=== PATIENT | female | born 1985 | race Two or more races ===

== ENCOUNTER 2024-08-01 15:48 | Emergency (ER) | payer MEDICAID, SELFPAY ==
[2024-08-01 15:49] VITALS: BMI 38.7
[2024-08-01 16:17] VITALS: BP 143/88; PULSE 70; RESP 18; TEMP 37; O2SAT 97
--- NOTE | 2024-08-01 16:17 | XR_ITS ---
Examination: PA lateral chest 2 views Technique: Upright PA lateral chest 2 views Exam date and time: August 01, 2024 1626 hrs. Indications: Chest pain today Findings: Minimal rounding left ventricle No pneumonia or pulmonary edema Moderate thoracic spondylosis Impression: No active disease
--- NOTE | 2024-08-01 16:17 | EKG_ITS ---
[facility] Test Date: 2024-08-01 Pat Name: JOSE DAVID VILLAR Department: Room: - Gender: Female Ldr Nurse: : 1985 Requested By: David Escobar ([employer] T[employer] LATHE OPERATOR) Order Number: [id number] Reading MD: David Escobar ([employer] TA[employer] T[employer]RET LATHE OPERATOR) Measurements Intervals [place] Rate: 61 P: 33 [place]: 164 QRS: -16 QRSD: 87 T: 31 QT: 389 QTc: 393 Interpretive Statements SINUS RHYTHM LOW QRS VOLTAGE IN PRECORDIAL LEADS [QRS DEFLECTION < 1.0 mV IN CHEST LEADS] POSSIBLE ANTERIOR MYOCARDIAL INFARCTION , OF INDETERMINATE AGE [30 ms Q WAVE IN V3/V4, OR R < 0.2 mV IN V4] No previous ECG available for comparison /store/S0/[id number].pdf
--- NOTE | 2024-08-01 16:17 | XR_ITS ---
Examination: CT brain head without contrast. 2-D sagittal coronal reconstructions Date and time of exam:August 01, 2024 1641 hrs. Indications: Onset severe head pain beginning 2 days ago CTDI: vol (mGy):50.9 DLP: (mGycm):1000 Technique: Multiple CT axial sections of the brain have been obtained, 5 mm slice thickness. Contrast has not been administered. 2-D sagittal, coronal reconstructions have been obtained Low dose protocols were performed. One or more of the following dose reduction techniques were used; automated exposure control, adjustment of the mA and/or KV according to patient size, use of iterative reconstruction technique. Findings: No significant ventricular enlargement. Intra-axial or extra-axial hemorrhage density is not seen. No mass effect or midline shift Basal cisterns are not remarkable. Fourth ventricle is midline. Cranial vault intact. Impression: Negative for acute hemorrhage, mass effect or midline shift Advise clinical correlation and follow-up accordingly If new onset severe head pain persists, consider brain MRI follow-up
--- NOTE | 2024-08-01 16:17 | PD.EDRME ---
Rapid Medical Screening Exam RME Arrival date/time: 08/01/24 15:48 39-year-old female presents to the emergency department complaints of dizziness, weakness generalized bodyaches Chief Complaint: Flu Like Symptoms
[2024-08-01 16:57] LABS: Basophils % (Auto) 1 % (0-2.5); Eosinophils # (Auto) 0.1 Thou/mm3 (0.0-0.5); Eosinophils % (Auto) 2 % (0-10); Hematocrit 41.3 % (36.0-46.0); Hemoglobin 14.1 g/dL (12.0-16.0); Immature Granulocytes % (Auto) 0 % (0-0); Immature Granulocytes Auto 0.01 Thou/mm3 (0.00-0.00); Lymphocytes % (Auto) 28 % (10-50); Mean Corpuscular HGB Conc 34.1 g/dl (31.0-37.0); Mean Corpuscular Hemoglobin 31.1 pg (25.0-35.0); Mean Corpuscular Volume 91 fL (80-100); Monocytes # (Auto) 0.7 Thou/mm3 (0.0-0.8); Monocytes % (Auto) 10 % (0-12); Neutrophils # (Auto) 4.4 Thou/mm3 (1.8-7.7); Neutrophils % (Auto) 60 % (37-80); Nucleated Red Blood Cell % 0 /100 WBC (0); Platelet Count 222 Thou/mm3 (140-440); RDW Standard Deviation 43.7 fL (36.4-46.3); Red Blood Count 4.53 Miln/mm3 (4.00-5.20); White Blood Count 7.3 Thou/mm3 (3.6-11.0)
[2024-08-01 17:17] LABS: Collection Type, Urine Clean Catch
[2024-08-01 17:25] LABS: Bilirubin,Urine Negative (Negative); Blood,Urine 3+ (Negative); Clarity,Urine Clear (Clear/Hazy); Color,Urine Lt-Yellow (Lt Yel-Yel); Culture Indicated,Urine Not Indicated; Glucose, Urine Negative (Negative); Ketones,Urine Negative (Negative); Leukocyte Esterase,Urine Negative (Negative); Nitrite,Urine Negative (Negative); Protein,Urine Negative (Neg - Trace); RBC,Urine 69 /hpf (0-3); Specific Gravity,Urine 1.022 (1.001-1.035); Squamous Epithelial Cell,Urine 2 /hpf (0-5); Urobilinogen,Urine Negative mg/dL (0.0-1.0); WBC,Urine 1 /hpf (0-5)
[2024-08-01 17:26] LABS: HCG Qualitative,Urine Negative
[2024-08-01 17:33] LABS: Alanine Aminotransferase 18 U/L (10-49); Albumin, Serum 4.6 gm/dL (3.5-5.0); Albumin/Globulin Ratio 1.5 (1.2-2.2); Alkaline Phosphatase 59 U/L (46-116); Anion Gap 8 (7-16); Aspartate Amino Transferase < 8 U/L (0-34); BUN/Creatinine Ratio 11 Ratio (12-20); Bilirubin,Total 0.5 mg/dL (0.3-1.2); Blood Urea Nitrogen 13 mg/dL (9-23); Calcium 9.5 mg/dL (8.3-10.6); Calcium (Corrected) 9.5 mg/dL (8.5-10.1); Carbon Dioxide 26.2 mMol/L (20.0-31.0); Chloride 106 mMol/L (98-107); Creatinine (Component) 1.2 mg/dL (0.6-1.3); Estimated Creatinine Clearance 77.8 mL/min (>60); Glucose 89 mg/dL (74-106); Osmolality,Calculated 278 (275-295); Potassium 4.5 mMol/L (3.4-5.1); Sodium 140 mMol/L (136-145); Total Protein 7.6 gm/dL (5.7-8.2); Troponin I < 0.020 ng/mL (0.0-0.045); eGFR 59 See Note
[2024-08-01 20:59] VITALS: BP 145/79; PULSE 71; RESP 18; TEMP 36.9; O2SAT 98
--- NOTE | 2024-08-01 21:26 | EDNOTE_ITS ---
Upper Respiratory Inf. RME/HPI General Chief Complaint: Flu Like Symptoms Stated Complaint: FLU SYMPTOMS FOR 2 WEEKS Time Seen by Provider: 08/01/24 18:55 Arrival date/time: 08/01/24 15:48 RME / HPI RME / HPI Narrative: 08/01/24 15:48 39-year-old female presents to the emergency department complaints of dizziness, weakness generalized bodyaches -------- Dr. Correa's Main ED Evaluation: Patient presents with sore throat since July 15, 2024. She states she saw her doctor on Tuesday and was given antibiotics. 2 days prior to that she started having nonbloody diarrhea. Patient saw her primary care who put her on antibiotics 5 days ago but she feels like she is not any better. Generalized body aches for the last 5 days and muscle aches on the back of her neck. Today headache 5 out of 10 but not worst headache of life. No weakness or numbness. Patient denies fevers today. Related Data Allergies Allergy/AdvReac Type Severity Reaction Status Date / Time No Known Allergies Allergy Verified 08/01/24 15:54 Review of Systems Review of Systems Systems Reviewed: All systems reviewed, normal except as documented Past Medical History Social History SMOKING STATUS: Never smoker ED Exam Narrative Physical exam: General Limitations: Present no limitations General appearance: Present alert and in no apparent distress Head Head exam: Present atraumatic Eye Eye exam: Present normal appearance, PERRL and EOMI ENT ENT exam: Present normal exam, normal oropharynx and mucous membranes dry Neck Neck exam: Present normal inspection, full ROM and trachea midline Chest Chest inspection: Present normal inspection and symmetric chest wall rise Respiratory Respiratory exam: Present normal lung sounds bilaterally Cardiovascular Cardiovascular exam: Present regular rate, normal rhythm and normal heart sounds Abdominal Exam Abdominal exam: Present soft and normal bowel sounds Extremities Exam Extremities exam: Present normal inspection and full ROM Back Exam Back exam: Present normal inspection and full ROM Neurological Exam Neurological exam: Present alert, oriented X3, CN II-XII intact, normal gait and other (Normal [id number].); Absent motor sensory deficit Psychiatric Psychiatric exam: Present normal affect and normal mood Skin Skin exam: Present warm, dry, intact and normal color Extremities Exam Extremities exam: Present normal inspection and full ROM Course Course Course Narrative: CXR is ordered for determining the etiology of weakness. Quality Measures none Orders Category Date Time Status Bedside Influenza A&B Antigen Test NOW Care 08/01/24 16:12 Completed EKG (ED ONLY) *Do not use* NOW Care 08/01/24 16:[address] head/brain wo con Stat Exams 08/01/24 16:17 Completed EKG (ED Only) Stat Exams 08/01/24 16:17 Draft XR chest 2V Stat Exams 08/01/24 16:17 Completed CBC Stat Lab 08/01/24 16:46 Completed Comprehensive Metabolic Panel Stat Lab 08/01/24 16:46 Completed HCG Qualitative,Urine Stat Lab 08/01/24 16:59 Completed Troponin I Stat Lab 08/01/24 16:46 Completed UA, C/S IF [Urinalysis, C/S if Indicated] Stat Lab 08/01/24 16:59 Completed Ketorolac Inj [Toradol Inj] Med 08/01/24 21:58 Discontinued 30 mg IM X1 ONE Vital Signs Vital signs: Vital Signs Temperature 98.6 F 08/01/24 16:17 Pulse Rate 70 08/01/24 16:17 Respiratory Rate 18 08/01/24 16:17 Blood Pressure 143/88 H 08/01/24 16:17 Pulse Oximetry (%) 97 08/01/24 16:17 Oxygen Delivery Method Room Air 08/01/24 16:17 Upper Respiratory Infection MDM Narrative MDM Narrative:: Differential gnosis includes viral syndrome, bacterial infection, dehydration, electrolyte abnormality. CT today does not show bleed. At this time I do not feel the patient is having the worst headache of life, her neck is supple and doubt meningitis. Patient will continue to hydrate. Will give Toradol IM and return precautions are given and understood Patient data External records reviewed:: [facility] previous records (Per chart review, patient has no previous ED visits or admissions to this facility.) Clinical information provided by:: patient Social determinants that could affect healthcare access:: none Patient has the following chronic illnesses:: none How is presenting disease/condition affected by chronic disease/condition?: no chronic disease Evaluation data The following diagnostics were reviewed and interpreted by me:: lab results, radiology exam(s) and EKG tracing(s) Lab and/or radiology exams considered but not ordered:: none Interpretation Summary: CBC is normal, CMP is normal, troponin is normal, UA is unremarkable, HCG is negative, Bedside Influenza is negative, according to my interpretation. EKG done at 1621, NSR, rate of 61, low voltage, QTc: 392, no STEMI, according to my interpretation. ----- [facility] Report Signed Patient: JOSE DAVID VILLAR Record#: [id number] Birthdate: 1985 Age/Sex: 39 / F Location: [facility] Attending Dr: Ordering Physician: Shawn GONSALEZ)David NP Date of Service: 08/01/24 Procedure(s): XR chest 2V Accession Number(s): [id number] cc: Shawn GONSALEZ)David NP; Abdifatah Angeles MD; Leon Foreman MD~ Examination: PA lateral chest 2 views Technique: Upright PA lateral chest 2 views Exam date and time: August 01, 2024 1626 hrs. Indications: Chest pain today Findings: Minimal rounding left ventricle No pneumonia or pulmonary edema Moderate thoracic spondylosis Impression: No active disease Dictated By: Abdifatah Angeles MD Signed By: <Electronically signed by Abdifatah Angeles MD in OV> 08/01/24 1715 [facility] Report Signed Patient: JOSE DAVID VILLAR Record#: [id number] Birthdate: 1985 Age/Sex: 39 / F Location: [facility] Attending Dr: Ordering Physician: David Escobar NP, NP Date of Service: 08/01/24 Procedure(s): CT head/brain wo con Accession Number(s): [id number] cc: David Escobar NP, NP; Abdifatah Angeles MD; Leon Foreman MD~ Examination: CT brain head without contrast. 2-D sagittal coronal reconstructions Date and time of exam:August 01, 2024 1641 hrs. Indications: Onset severe head pain beginning 2 days ago CTDI: vol (mGy):50.9 DLP: (mGycm):1000 Technique: Multiple CT axial sections of the brain have been obtained, 5 mm slice thickness. Contrast has not been administered. 2-D sagittal, coronal reconstructions have been obtained Low dose protocols were performed. One or more of the following dose reduction techniques were used; automated exposure control, adjustment of the mA and/or KV according to patient size, use of iterative reconstruction technique. Findings: No significant ventricular enlargement. Intra-axial or extra-axial hemorrhage density is not seen. No mass effect or midline shift Basal cisterns are not remarkable. Fourth ventricle is midline. Cranial vault intact. Impression: Negative for acute hemorrhage, mass effect or midline shift Advise clinical correlation and follow-up accordingly If new onset severe head pain persists, consider brain MRI follow-up Dictated By: Abdifatah Angeles MD Signed By: <Electronically signed by Abdifatah Angeles MD in OV> 08/01/24 1711 Medications / Prescriptions Medications or Prescriptions considered but not ordered:: none Medication administrations:: Medication Administration History Discontinued Medications Ketorolac Tromethamine (Ketorolac Inj 60 Mg/2 Ml Vial) 30 mg IM X1 ONE Stop: 08/01/24 21:59 see above, if any Consultations Consultation(s) initiated? (list below): No Diagnosis Upper Respiratory Differential Diagnosis: viral infection and other (bacterial infection, dehydration, electrolyte abnormality) Most likely diagnosis given after review of the tests above:: see below Admission Indicated Admission indicated?: not indicated Admission Request Was there a request for admission?: No Disposition Plan Disposition Plan: Discharge Discharge Attestation Discharge Attestation: The patient and all family members were given an opportunity to ask questions and understood the discharge instructions. Discharge instructions specifically effects, indications for sooner follow up or return to the emergency department, and the expected course of current diagnosis. Patient condition: Stable Discharge Plan Plan Patient Disposition: HOME (Self Care) Patient condition on transfer: Stable Prescriptions/Referrals Referrals: Leon Foreman MD [Primary Care Provider] - In 1 week Problem List Clinical Impression: Generalized body aches Patient/Caregiver Discharge Instructions Diet Instructions: Stay hydrated with Pedialyte or Gatorade to ensure your urine is almost clear. Additional Instructions: You can take [id number] Tylenol 650 mg or Motrin 600 mg 3 times a day for the next few days. Please return to your doctor in the next 1 week for reevaluation. Return to Emergency Department for worsening symptoms, or any other concerns. Print Language: Maltese Stand Alone Forms: [facility]onda Award Info., Work/School Release, Patient Portal Info Letter
--- NOTE | 2024-08-01 21:48 | PD.EDURI ---
Upper Respiratory Inf. RME/HPI General Chief Complaint: Flu Like Symptoms Stated Complaint: FLU SYMPTOMS FOR 2 WEEKS Time Seen by Provider: 08/01/24 18:55 Arrival date/time: 08/01/24 15:48 Limitations: no limitations RME / HPI RME / HPI Narrative: 08/01/24 15:48 39-year-old female presents to the emergency department complaints of dizziness, weakness generalized bodyaches -------- Dr. Correa's Main ED Evaluation: Patient presents with sore throat since July 15, 2024. She states she saw her doctor on Tuesday and was given antibiotics. 2 days prior to that she started having nonbloody diarrhea. Patient saw her primary care who put her on antibiotics 5 days ago but she feels like she is not any better. Generalized body aches for the last 5 days and muscle aches on the back of her neck. Today headache 5 out of 10 but not worst headache of life. No weakness or numbness. Patient denies fevers today. Related Data Allergies Allergy/AdvReac Type Severity Reaction Status Date / Time No Known Allergies Allergy Verified 08/01/24 15:54 ED Exam General Limitations: Present no limitations General appearance: Present alert and in no apparent distress Head Head exam: Present atraumatic Eye Eye exam: Present normal appearance, PERRL and EOMI ENT ENT exam: Present normal exam, normal oropharynx and mucous membranes dry Neck Neck exam: Present normal inspection, full ROM and trachea midline Chest Chest inspection: Present normal inspection and symmetric chest wall rise Respiratory Respiratory exam: Present normal lung sounds bilaterally Cardiovascular Cardiovascular exam: Present regular rate, normal rhythm and normal heart sounds Abdominal Exam Abdominal exam: Present soft and normal bowel sounds Extremities Exam Extremities exam: Present normal inspection and full ROM Back Exam Back exam: Present normal inspection and full ROM Neurological Exam Neurological exam: Present alert, oriented X3, CN II-XII intact, normal gait and other (Normal [id number].); Absent motor sensory deficit Psychiatric Psychiatric exam: Present normal affect and normal mood Skin Skin exam: Present warm, dry, intact and normal color Course Orders Category Date Time Status Bedside Influenza A&B Antigen Test NOW Care 08/01/24 16:12 Completed EKG (ED ONLY) *Do not use* NOW Care 08/01/24 16:[address] head/brain wo con Stat Exams 08/01/24 16:17 Completed EKG (ED Only) Stat Exams 08/01/24 16:17 Draft XR chest 2V Stat Exams 08/01/24 16:17 Completed CBC Stat Lab 08/01/24 16:46 Completed Comprehensive Metabolic Panel Stat Lab 08/01/24 16:46 Completed HCG Qualitative,Urine Stat Lab 08/01/24 16:59 Completed Troponin I Stat Lab 08/01/24 16:46 Completed UA, C/S IF [Urinalysis, C/S if Indicated] Stat Lab 08/01/24 16:59 Completed Vital Signs Vital signs: Vital Signs Temperature 98.6 F 08/01/24 16:17 Pulse Rate 70 08/01/24 16:17 Respiratory Rate 18 08/01/24 16:17 Blood Pressure 143/88 H 08/01/24 16:17 Pulse Oximetry (%) 97 08/01/24 16:17 Oxygen Delivery Method Room Air 08/01/24 16:17 Upper Respiratory Infection MDM Narrative MDM Narrative:: Differential gnosis includes viral syndrome, bacterial infection, dehydration, electrolyte abnormality. CT today does not show bleed. At this time I do not feel the patient is having the worst headache of life, her neck is supple and doubt meningitis. Patient will continue to hydrate. Will give Toradol IM and return precautions are given and understood. Patient data External records reviewed:: [facility] previous records Discharge Plan Prescriptions/Referrals Referrals: Leon Foreman MD [Primary Care Provider] - In 1 week Patient/Caregiver Discharge Instructions Print Language: Tajik
[2024-08-01] MEDS: KETOROLAC INJ 60 MG/2 ML VIAL 30 MG IM (22:13)
== END 2024-08-01 22:33 | disposition home or self-care (01) ==
PROVIDERS: Nurse Practitioner Primary Care; Emergency Provider Emergency Medicine; PCP Family Medicine
DX: R51.9 Headache, unspecified (principal); R07.9 Chest pain, unspecified; R53.1 Weakness; R94.31 Abnormal electrocardiogram [ECG] [EKG]
CPT/HCPCS: 36415; 70450; 71046; 80053; 81001; 81025; 84484; 85025; 87400; 93005; 96372; 99284; J1885

== ENCOUNTER 2024-08-08 03:26 | Emergency (ER) | payer MEDICAID, SELFPAY ==
[2024-08-08 03:34] VITALS: BP 184/83; PULSE 75; RESP 18; TEMP 36.8; O2SAT 99; BMI 43.9
--- NOTE | 2024-08-08 03:48 | PD.EDRME ---
Rapid Medical Screening Exam RME Arrival date/time: 08/08/24 03:26 39-year-old female presents emergency department complaint of bilateral flank pain and dysuria since yesterday. Chief Complaint: Back Pain/Injury Time Seen by Provider: 08/08/24 03:40 Vital signs: Vital Signs Temperature 98.3 F 08/08/24 03:34 Pulse Rate 75 08/08/24 03:34 Respiratory Rate 18 08/08/24 03:34 Blood Pressure 184/83 H 08/08/24 03:34 Pulse Oximetry (%) 99 08/08/24 03:34 Oxygen Delivery Method Room Air 08/08/24 03:34 Vital signs reviewed by provider: Yes
--- NOTE | 2024-08-08 03:49 | XR_ITS ---
Examination: CT abdomen and pelvis without contrast. Coronal 3-D reconstructions. Sagittal 2-D reconstructions. Date and time of exam:August 08, 2024 0407 hrs. Indications: Bilateral flank pain, urinary urgency and frequency beginning one week ago CTDI: vol (mGy): 12.71 DLP: (mGycm): 815 Technique: Axial images of the abdomen have been obtained, 3 mm slice thickness Intravenous contrast material has not been administered. Low dose protocols were performed. One or more of the following dose reduction techniques were used; automated exposure control, adjustment of the mA and/or KV according to patient size, use of iterative reconstruction technique. Findings: Mild vascular congestion No focal liver or splenic lesions No gallstones No pancreatic or adrenal mass No renal or ureteral calculi,. Minimal hydronephrosis Normal appendix No bowel obstruction Anteverted uterus Hypodense mass in the cervix, 31 x 18 mm Urinary bladder intact Moderate disc narrowing L5-S1 Impression: Minimal hydronephrosis without ureteral calculi, consider urinary tract infection, vesicoureteral reflux 31 x 18 mm hypodense mass in the cervix, recommend transvaginal transabdominal pelvic sonography follow-up to exclude solid cervical mass
[2024-08-08] MEDS: KETOROLAC INJ 60 MG/2 ML VIAL 30 MG IM (04:00)
--- NOTE | 2024-08-08 05:04 | PRELIM_ITS ---
CT scan of the abdomen and pelvis without intravenous contrast (axial sections with sagittal and tram nal reformats) August 08, 2024 0407 hours Clinical History: Bilateral flank pain Comparison: None.Fi ndings:The lung bases are clear.The liver, gallbladder, pancreas, spleen, and adrenals are unremarkab le on this noncontrast study.No evidence of bowel obstruction.There is no mesenteric or retroperitone al adenopathy.The urinary bladder is unremarkable. There is no free fluid or free air.The osseous str uctures are unremarkable.Hypodense area in the cervix.Mild bilateral hydroureteronephrosis. No eviden ce of kidney or ureteral stones.Impression:Hypodense area in the cervix, further evaluation to exclud e cervical cancer is recommended.Mild bilateral hydroureteronephrosis. Report Electronically Signed B y: [place] 08/08/2024 5:03:47 AM [EST]
[2024-08-08 06:26] LABS: Collection Type, Urine Clean Catch
[2024-08-08 06:53] LABS: Alanine Aminotransferase 19 U/L (10-49); Albumin, Serum 4.5 gm/dL (3.5-5.0); Albumin/Globulin Ratio 1.5 (1.2-2.2); Alkaline Phosphatase 60 U/L (46-116); Anion Gap 8 (7-16); Aspartate Amino Transferase 23 U/L (0-34); BUN/Creatinine Ratio 14 Ratio (12-20); Bilirubin,Total 0.6 mg/dL (0.3-1.2); Blood Urea Nitrogen 10 mg/dL (9-23); Calcium 9.9 mg/dL (8.3-10.6); Calcium (Corrected) 9.9 mg/dL (8.5-10.1); Carbon Dioxide 24.8 mMol/L (20.0-31.0); Chloride 107 mMol/L (98-107); Creatinine (Component) 0.7 mg/dL (0.6-1.3); Estimated Creatinine Clearance 143.2 mL/min (>60); Globulin 3.1 gm/dL (2.3-3.5); Glucose 99 mg/dL (74-106); Lipase 31 U/L (12-53); Osmolality,Calculated 278 (275-295); Potassium 4.1 mMol/L (3.4-5.1); Sodium 140 mMol/L (136-145); Total Protein 7.6 gm/dL (5.7-8.2); eGFR > 60 See Note
[2024-08-08 07:00] LABS: HCG,Qualitative Serum Negative
[2024-08-08 07:05] LABS: Bilirubin,Urine Negative (Negative); Blood,Urine Negative (Negative); Clarity,Urine Clear (Clear/Hazy); Color,Urine Lt-Yellow (Lt Yel-Yel); Culture Indicated,Urine Not Indicated; Glucose, Urine Negative (Negative); Ketones,Urine Negative (Negative); Leukocyte Esterase,Urine Negative (Negative); Nitrite,Urine Negative (Negative); Protein,Urine Negative (Neg - Trace); RBC,Urine 2 /hpf (0-3); Squamous Epithelial Cell,Urine < 1 /hpf (0-5); Urobilinogen,Urine Negative mg/dL (0.0-1.0); WBC,Urine < 1 /hpf (0-5)
[2024-08-08 07:06] LABS: Basophils % (Auto) 1 % (0-2.5); Eosinophils # (Auto) 0.1 Thou/mm3 (0.0-0.5); Eosinophils % (Auto) 2 % (0-10); Hematocrit 39.7 % (36.0-46.0); Hemoglobin 13.5 g/dL (12.0-16.0); Immature Granulocytes % (Auto) 0 % (0-0); Immature Granulocytes Auto 0.03 Thou/mm3 (0.00-0.00); Lymphocytes # (Auto) 1.9 Thou/mm3 (1.0-4.8); Lymphocytes % (Auto) 24 % (10-50); Mean Corpuscular Volume 91 fL (80-100); Monocytes # (Auto) 0.6 Thou/mm3 (0.0-0.8); Monocytes % (Auto) 7 % (0-12); Neutrophils # (Auto) 5.2 Thou/mm3 (1.8-7.7); Neutrophils % (Auto) 66 % (37-80); Nucleated Red Blood Cell % 0 /100 WBC (0); Platelet Count 227 Thou/mm3 (140-440); RDW Standard Deviation 43.8 fL (36.4-46.3); Red Blood Count 4.36 Miln/mm3 (4.00-5.20); White Blood Count 7.9 Thou/mm3 (3.6-11.0)
[2024-08-08 07:44] VITALS: BP 128/84; PULSE 60; RESP 16; TEMP 36.7; O2SAT 97
--- NOTE | 2024-08-08 07:59 | EDNOTE_ITS ---
ED Back Injury Pain RME/HPI General Chief Complaint: Back Pain/Injury Stated Complaint: Bilateral flank pain/urgency to pee/dizziness Time Seen by Provider: 08/08/24 03:40 Source: patient Arrival date/time: 08/08/24 03:26 39-year-old female with no known medical history presents to the emergency room with a chief complaint of bilateral flank pain, dysuria x 1 day Mode of arrival: ambulatory Limitations: no limitations RME / HPI RME / HPI Narrative: 08/08/24 03:26 39-year-old female presents emergency department complaint of bilateral flank pain and dysuria since yesterday. Related Data Previous Rx's ?Medication ?Instructions ?Recorded nitrofurantoin 100 mg PO Q12H 5 days #10 caps 08/08/24 monohydrate/macrocrystals 100 mg capsule (Macrobid) Allergies Allergy/AdvReac Type Severity Reaction Status Date / Time No Known Allergies Allergy Verified 08/01/24 15:54 Review of Systems Review of Systems Systems Reviewed: All systems reviewed, normal except as documented Constitutional Constitutional: Reports system reviewed and no additional complaints, except as documented, Denies fatigue, Denies fever(s), Denies headache(s) and Denies weakness Eyes Eyes: Reports system reviewed and no additional complaints, except as documented, Denies blurry vision and Denies change in vision ENT Ears, Nose, Mouth, and Throat: Reports system reviewed and no additional complaints, except as documented, Denies otalgia, Denies headache(s), Denies nasal congestion, Denies throat swelling and Denies vertigo Cardiovascular Cardiovascular: Reports system reviewed and no additional complaints, except as documented, Denies chest pain, Denies dyspnea and Denies dyspnea on exertion Respiratory Respiratory: Reports system reviewed and no additional complaints, except as documented, Denies chest congestion, Denies cough, Denies dyspnea, Denies dyspnea on exertion and Denies wheezing Gastrointestinal Gastrointestinal: Reports system reviewed and no additional complaints, except as documented, Denies abdominal pain, Denies cramping, Denies nausea and Denies vomiting Genitourinary Genitourinary: Reports system reviewed and no additional complaints, except as documented and Reports dysuria Musculoskeletal Musculoskeletal: Reports system reviewed and no additional complaints, except as documented and Reports back pain Integumentary/Breasts Skin/Breast: Reports system reviewed and no additional complaints, except as documented and Denies wounds Neurologic Neurologic: Reports system reviewed and no additional complaints, except as documented, Denies confusion, Denies headache(s), Denies lack of coordination, Denies vertigo and Denies weakness Psychiatric Psychiatric: Reports system reviewed and no additional complaints, except as documented, Denies anxiety, Denies confusion, Denies depression, Denies paranoia, Denies suicidal ideation and Denies tactile hallucinations Endocrine Endocrine: Reports system reviewed and no additional complaints, except as documented and Denies fatigue Hematologic/Lymphatic Hematologic/Lymphatic: Reports system reviewed and no additional complaints, except as documented and Denies lymphadenopathy Allergic/Immunologic Allergic/Immunologic: Reports system reviewed and no additional complaints, except as documented, Denies throat swelling, Denies urticaria and Denies wheezing ED Exam General Limitations: Present no limitations General appearance: Present alert and in no apparent distress Head Head exam: Present atraumatic Eye Eye exam: Present normal appearance, PERRL and EOMI ENT ENT exam: Present normal exam, normal oropharynx and mucous membranes moist Neck Neck exam: Present normal inspection, full ROM and trachea midline Chest Chest inspection: Present normal inspection and symmetric chest wall rise Respiratory Respiratory exam: Present normal lung sounds bilaterally Cardiovascular Cardiovascular exam: Present regular rate, normal rhythm and normal heart sounds Abdominal Exam Abdominal exam: Present soft and normal bowel sounds Extremities Exam Extremities exam: Present normal inspection and full ROM Back Exam Back exam: Present normal inspection, full ROM, CVA tenderness (R) and CVA tenderness (L) Neurological Exam Neurological exam: Present alert, oriented X3 and CN II-XII intact Psychiatric Psychiatric exam: Present normal affect and normal mood Skin Skin exam: Present warm, dry, intact and normal color Course Quality Measures none Orders Category Date Time Status CT abdomen pelvis wo con Stat Exams 08/08/24 03:49 Completed CBC Stat Lab 08/08/24 06:00 Completed CMP [Comprehensive Metabolic Panel] Stat Lab 08/08/24 06:00 Completed HCG,Qualitative Serum Stat Lab 08/08/24 06:00 Completed Lipase Stat Lab 08/08/24 06:00 Completed Urinalysis, C/S if Indicated Stat Lab 08/08/24 06:16 Completed Ketorolac Inj [Toradol Inj] Med 08/08/24 03:49 Discontinued 30 mg IM X1 ONE Vital Signs Vital signs: Vital Signs Temperature 98.3 F 08/08/24 03:34 Pulse Rate 75 08/08/24 03:34 Respiratory Rate 18 08/08/24 03:34 Blood Pressure 184/83 H 08/08/24 03:34 Pulse Oximetry (%) 99 08/08/24 03:34 Oxygen Delivery Method Room Air 08/08/24 03:34 O2 saturation 99% within normal limits Back Pain / Injury MDM Narrative MDM Narrative:: 39-year-old female with no known medical history presents to the emergency room with a chief complaint of bilateral flank pain, dysuria x 1 day clinically the patient appears nontoxic and in no apparent distress. Physical examination shows bilateral CVA tenderness with palpation. Patient has a soft nontender abdomen. CT of the abdomen pelvis was completed and was negative for any acute findings. However the radiologist did read a hypodense area in the cervix that needs further evaluation to exclude cervical cancer. The patient was sat in the room and given education to follow-up with her primary care provider as further imaging will be needed. Patient states she has seen her primary care provider for an issue and was sent to an NUCLEAR CARDIOLOGY TECHNOLOGIST and got multiple ultrasounds done but she does not know if it is related to this finding. Patient stated that she will follow-up with her primary care provider as soon as possible. CBC CMP were negative for any acute findings. Urinalysis was negative however on the CT report there is a chance that this can be cystitis. Antibiotics are sent to the patient's pharmacy patient was discharged and educated to follow-up with her primary care provider and return to the emergency room for any evidence of worsening signs or Patient data External records reviewed:: [facility] previous records Clinical information provided by:: patient Social determinants that could affect healthcare access:: none Patient has the following chronic illnesses:: No chronic illness How is presenting disease/condition affected by chronic disease/condition?: no chronic disease Evaluation data The following diagnostics were reviewed and interpreted by me:: lab results and radiology exam(s) Lab and/or radiology exams considered but not ordered:: Labs and radiology exams considered and ordered Interpretation Summary: CT abdomen and pelvis-Findings: Mild vascular congestion No focal liver or splenic lesions No gallstones No pancreatic or adrenal mass No renal or ureteral calculi,. Minimal hydronephrosis Normal appendix No bowel obstruction Anteverted uterus Hypodense mass in the cervix, 31 x 18 mm Urinary bladder intact Moderate disc narrowing L5-S1 Impression: Minimal hydronephrosis without ureteral calculi, consider urinary tract infection, vesicoureteral reflux 31 x 18 mm hypodense mass in the cervix, recommend transvaginal transabdominal pelvic sonography follow-up to exclude solid cervical mass Medications / Prescriptions Medications or Prescriptions considered but not ordered:: Medication given Medication administrations:: Medication Administration History Discontinued Medications Ketorolac Tromethamine (Ketorolac Inj 60 Mg/2 Ml Vial) 30 mg IM X1 ONE Stop: 08/08/24 03:50 Last Admin: 08/08/24 04:00 Dose: 30 mg Documented By: SF Medication given Consultations Consultation(s) initiated? (list below): No Diagnosis Differential diagnosis back pain/injury: lumbar radiculopathy, strain of lumbar region, renal colic, discitis and other (Flank pain/urinary tract infection) Most likely diagnosis given after review of the tests above:: Urinary tract infection Admission Indicated Admission indicated?: not indicated Admission Request Was there a request for admission?: No Disposition Plan Disposition Plan: Discharge Discharge Attestation Discharge Attestation: The patient and all family members were given an opportunity to ask questions and understood the discharge instructions. Discharge instructions specifically effects, indications for sooner follow up or return to the emergency department, and the expected course of current diagnosis. Patient condition: Stable Discharge Plan Plan Patient Disposition: HOME (Self Care) Disposition Comment: Stable Prescriptions/Referrals Prescriptions/Med Rec: New nitrofurantoin monohyd/m-cryst [Macrobid] 100 mg capsule 100 mg PO Q12H 5 Days Qty: 10 0RF Rx Instructions: must administer with a meal/food Referrals: Rossana Alexandra LAB COURIER [Primary Care Provider] - In 1 week Problem List Clinical Impression: Acute flank pain Patient/Caregiver Discharge Instructions Education Materials: ED Flank Pain, Uncertain Cause Additional Instructions: Pantera un seguimiento con nicholson proveedor de atenci?n primaria en las pr?ximas 24 a 48 horas. Adjunt? un informe de radiolog?a a nicholson documentaci?n de violetta que mostraba un ?mohinder hipodensa en el gus uterino. Deber? realizar un seguimiento con nicholson proveedor de atenci?n primaria para realizar kemar evaluaci?n adicional para descartar el c?ncer de gus uterino. El adelia de nicholson tomograf?a computarizada fue notable: no hay c?lculos renales ni c?lculos ureterales. Ante cualquier evidencia de empeoramiento de los signos o s?ntomas, regrese a la dmitriy de emergencias de inmediato. Print Language: Cypriot Stand Alone Forms: Rhonda Award Info., Patient Portal Info Letter PA/INFANT AND TODDLER TEACHER Supervising Physician PA/INFANT AND TODDLER TEACHER Supervising Physician: Dr. Blanton
== END 2024-08-08 07:50 | disposition home or self-care (01) ==
PROVIDERS: Emergency Provider Emergency Medicine; PCP Registered Nurse Community Health
DX: N13.30 Unspecified hydronephrosis (principal); N88.8 Other specified noninflammatory disorders of cervix uteri
CPT/HCPCS: 36415; 74176; 80053; 81001; 83690; 84703; 85025; 96372; 99284; J1885

== ENCOUNTER → 2025-03-11 | Outpatient (CLI) | payer SELFPAY ==
--- NOTE | 2025-03-11 11:00 | XR_ITS ---
Examination: Screening digital mammography, bilateral Computer aided detection 3-D breast Tomosynthesis, bilateral Date and time of exam: March 11, 2025 1046 hours no priors Indication: Screening Technique: Nonmagnified MLO, CC views of the breasts to been obtained, reconstructed from 3-D Tomosynthesis images. R2 computer aided detection program utilized for evaluation of suspicious masses and/or abnormal calcifications. 3-D Tomosynthesis images obtained. Findings: The breasts are heterogeneously dense, which may obscure small masses Poorly defined nodular parenchyma in the outer right breast on the CC view At the same location grouped microcalcifications which are in the upper right breast on the MLO view Impression: BI-RADS Category 0: Incomplete: Need additional imaging evaluation Poorly defined nodular parenchyma outer right breast on the CC view, recommend follow-up spot tomographic views upper outer quadrant right breast Loosely grouped microcalcifications upper outer right breast, recommend follow-up spot 9 dictation views of these calcifications Recommend right breast sonography follow-up to complete the workup
== END | disposition home or self-care (01) ==
PROVIDERS: Referring Provider Obstetrics & Gynecology; Visit Provider Obstetrics & Gynecology
DX: Z12.31 Encounter for screening mammogram for malignant neoplasm of breast (principal); R92.0 Mammographic microcalcification found on diagnostic imaging of breast; N63.10 Unspecified lump in the right breast, unspecified quadrant
CPT/HCPCS: 77063; 77067

== ENCOUNTER 2025-03-21 15:50 | Emergency (ER) | payer MEDICAID, SELFPAY ==
[2025-03-21 15:51] VITALS: BMI 35.8
[2025-03-21 16:28] VITALS: BP 152/82; PULSE 81; RESP 18; TEMP 37.2; O2SAT 98
--- NOTE | 2025-03-21 16:42 | XR_ITS ---
Examination: Abdomen sonogram, Limited Date and time of exam: March 21, 2025, 1650 hours INDICATIONS: Bilateral flank pain beginning 6 days ago Technique: Real-time cody scale transabdominal sonographic images of the upper abdomen obtained. Findings: Normal gallbladder. Normal common bile duct 0.3 cm Pancreatic head 1.7 cm Liver 14.9 cm fatty infiltration no focal liver lesions Normal hepatopedal portal venous flow Patent IVC IMPRESSION: Normal gallbladder No focal liver lesions
--- NOTE | 2025-03-21 16:42 | XR_ITS ---
Examination: CT abdomen and pelvis without contrast. Coronal 3-D reconstructions. Sagittal 2-D reconstructions. Date and time of exam:March 21, 2025, 1916 hours, comparison August 08, 2024. INDICATIONS: Lower abdominal pain and bilateral flank pain beginning today. CTDI: vol (mGy): 11.9. DLP: (mGycm): 728 Technique: Axial images of the abdomen have been obtained, 3 mm slice thickness Intravenous contrast material has not been administered. Low dose protocols were performed. One or more of the following dose reduction techniques were used; automated exposure control, adjustment of the mA and/or KV according to patient size, use of iterative reconstruction technique. Findings: No focal liver or splenic lesion No gallstones No pancreatic or adrenal mass. No renal or ureteral calculi, no hydronephrosis Aorta normal size 28 mm fat-containing umbilical hernia. Normal appendix No bowel obstruction No diverticulitis Anteverted uterus Sagittal image 122 demonstrates 26 mm masslike area in the cervix Bladder is intact Moderate disc narrowing L5-S1 IMPRESSION: No renal or ureteral calculi, no hydronephrosis Normal appendix No bowel obstruction or diverticulitis Recommend transvaginal transabdominal pelvic sonography to exclude cervical mass
--- NOTE | 2025-03-21 16:43 | PD.EDRME ---
Rapid Medical Screening Exam RME Arrival date/time: 03/21/25 15:50 40-year-old female presents emergency department today for complaint of abdominal pain Chief Complaint: Abdominal Pain Vital signs: Vital Signs Temperature 98.9 F 03/21/25 16:28 Pulse Rate 81 03/21/25 16:28 Respiratory Rate 18 03/21/25 16:28 Blood Pressure 152/82 H 03/21/25 16:28 Pulse Oximetry (%) 98 03/21/25 16:28 Oxygen Delivery Method Room Air 03/21/25 16:28
[2025-03-21 18:00] LABS: Basophils # (Auto) 0.1 Thou/mm3 (0.0-0.2); Basophils % (Auto) 1 % (0-2.5); Eosinophils # (Auto) 0.2 Thou/mm3 (0.0-0.5); Eosinophils % (Auto) 2 % (0-10); Hematocrit 40.8 % (36.0-46.0); Hemoglobin 13.7 g/dL (12.0-16.0); Immature Granulocytes Auto 0.02 Thou/mm3 (0.00-0.00); Lymphocytes # (Auto) 2.2 Thou/mm3 (1.0-4.8); Lymphocytes % (Auto) 25 % (10-50); Mean Corpuscular HGB Conc 33.6 g/dl (31.0-37.0); Mean Corpuscular Hemoglobin 31.4 pg (25.0-35.0); Mean Corpuscular Volume 94 fL (80-100); Monocytes # (Auto) 0.7 Thou/mm3 (0.0-0.8); Monocytes % (Auto) 8 % (0-12); Neutrophils # (Auto) 5.7 Thou/mm3 (1.8-7.7); Neutrophils % (Auto) 65 % (37-80); Nucleated Red Blood Cell # 0.00 Thou/mm3 (0.00-0.00); Nucleated Red Blood Cell % 0 /100 WBC (0); Platelet Count 242 Thou/mm3 (140-440); RDW Standard Deviation 44.7 fL (36.4-46.3); Red Blood Count 4.36 Miln/mm3 (4.00-5.20); White Blood Count 8.9 Thou/mm3 (3.6-11.0)
[2025-03-21 18:10] LABS: Collection Type, Urine Clean Catch
[2025-03-21 18:17] LABS: Alanine Aminotransferase 14 U/L (10-49); Albumin, Serum 4.5 gm/dL (3.5-5.0); Albumin/Globulin Ratio 1.7 (1.2-2.2); Alkaline Phosphatase 56 U/L (46-116); Anion Gap 11 (7-16); Aspartate Amino Transferase 22 U/L (0-34); BUN/Creatinine Ratio 13 Ratio (12-20); Bilirubin,Total 0.5 mg/dL (0.3-1.2); Blood Urea Nitrogen 10 mg/dL (9-23); Calcium 10.0 mg/dL (8.3-10.6); Calcium (Corrected) 10.0 mg/dL (8.5-10.1); Carbon Dioxide 23.6 mMol/L (20.0-31.0); Chloride 106 mMol/L (98-107); Creatinine (Component) 0.8 mg/dL (0.6-1.3); Estimated Creatinine Clearance 110.8 mL/min (>60); Globulin 2.7 gm/dL (2.3-3.5); Glucose 91 mg/dL (74-106); Lipase 24 U/L (12-53); Osmolality,Calculated 280 (275-295); Potassium 3.8 mMol/L (3.4-5.1); Sodium 141 mMol/L (136-145); Total Protein 7.2 gm/dL (5.7-8.2); eGFR > 60 See Note
[2025-03-21 18:37] LABS: Amorphous Crystals,Urine Present (Absent); Bilirubin,Urine Negative (Negative); Blood,Urine Negative (Negative); Clarity,Urine Clear (Clear/Hazy); Color,Urine Yellow (Lt Yel-Yel); Culture Indicated,Urine Not Indicated; Glucose, Urine Negative (Negative); Ketones,Urine Negative (Negative); Leukocyte Esterase,Urine Negative (Negative); Nitrite,Urine Negative (Negative); PH,Urine 5.5 (5.0-7.0); Protein,Urine 1+ (Neg - Trace); RBC,Urine 5 /hpf (0-3); Specific Gravity,Urine 1.039 (1.001-1.035); Squamous Epithelial Cell,Urine 5 /hpf (0-5); Urobilinogen,Urine Negative mg/dL (0.0-1.0); WBC,Urine 3 /hpf (0-5)
[2025-03-21 18:51] LABS: HCG Qualitative,Urine Negative
--- NOTE | 2025-03-21 20:27 | XR_ITS ---
Examination: Pelvic ultrasound, transabdominal, complete Technique: Transabdominal ultrasound of the pelvis performed using grayscale imaging Date and time of exam: March 21, 20252038 hours INDICATION: Pelvic pain beginning 6 days ago, prominent cervix on CT abdomen pelvis study today FINDINGS: Uterus 9.2 cm with multiple benign cervical cysts, the largest 27 mm No solid uterine or cervical mass Endometrial stripe 1.6 cm Right ovary 3.7 cm retrocrural Left ovary obscured by bowel gas IMPRESSION: Multiple benign cervical cysts
--- NOTE | 2025-03-21 21:01 | PD.EDABDPN ---
ED Abdominal Pain RME/HPI General Chief Complaint: Abdominal Pain Stated complaint: ABD PAIN , WEAKNESS, FLANK PAIN, DIFF BREATHING Time seen by provider: 03/21/25 18:07 Arrival date/time: 03/21/25 15:50 Source: patient Mode of arrival: ambulatory Limitations: no limitations RME / HPI RME / HPI narrative: 03/21/25 15:50 40-year-old female presents emergency department today for complaint of abdominal pain. She states this started over 1 year ago. She has seen her primary care provider for this and states she had blood work that was unremarkable. She denies any chronic medical history. Denies any past surgeries. She denies any vomiting or diarrhea. No dysuria. No fevers or chills. No abdominal distention or leg swelling. She has no other acute complaints. Related Data Allergies Allergy/AdvReac Type Severity Reaction Status Date / Time No Known Allergies Allergy Verified 03/21/25 15:54 Review of Systems Review of Systems Systems Reviewed: All systems reviewed, normal except as documented ED Exam General Limitations: Present no limitations General appearance: Present alert and in no apparent distress Head Head exam: Present atraumatic Eye Eye exam: Present normal appearance, PERRL and EOMI ENT ENT exam: Present normal exam, normal oropharynx and mucous membranes moist Neck Neck exam: Present normal inspection, full ROM and trachea midline Chest Chest inspection: Present normal inspection and symmetric chest wall rise Respiratory Respiratory exam: Present normal lung sounds bilaterally Cardiovascular Cardiovascular exam: Present regular rate, normal rhythm and normal heart sounds Abdominal Exam Abdominal exam: Present soft, distention, tenderness, guarding and normal bowel sounds Extremities Exam Extremities exam: Present normal inspection and full ROM Back Exam Back exam: Present normal inspection and full ROM Neurological Exam Neurological exam: Present alert and oriented X3 Psychiatric Psychiatric exam: Present normal affect and normal mood Skin Skin exam: Present warm, dry, intact and normal color Course Quality Measures none Orders Category Date Time Status CT abdomen pelvis wo con Stat Exams 03/21/25 16:42 Completed US gall bladder Stat Exams 03/21/25 16:42 Completed US pelvic complete Stat Exams 03/21/25 20:27 Completed CBC Stat Lab 03/21/25 17:35 Completed Comprehensive Metabolic Panel Stat Lab 03/21/25 17:35 Completed HCG Qualitative,Urine Stat Lab 03/21/25 18:00 Completed Lipase Stat Lab 03/21/25 17:35 Completed UA, C/S IF [Urinalysis, C/S if Indicated] Stat Lab 03/21/25 18:00 Completed Vital Signs Vital signs: Vital Signs Temperature 98.9 F 03/21/25 16:28 Pulse Rate 81 03/21/25 16:28 Respiratory Rate 18 03/21/25 16:28 Blood Pressure 152/82 H 03/21/25 16:28 Pulse Oximetry (%) 98 03/21/25 16:28 Oxygen Delivery Method Room Air 03/21/25 16:28 Abdominal Pain MDM MDM Narrative MDM Narrative:: 03/21/25 15:50 40-year-old female presents emergency department today for complaint of abdominal pain. She states this started over 1 year ago. She has seen her primary care provider for this and states she had blood work that was unremarkable. She denies any chronic medical history. Denies any past surgeries. She denies any vomiting or diarrhea. No dysuria. No fevers or chills. No abdominal distention or leg swelling. She has no other acute complaints. Her CBC, CMP, are unremarkable. Metabolic panel is unremarkable. Urinalysis is unremarkable with exception of [address] erythrocytes. Abdom[address] and pelvis CT was obtained and there is concerns for possible cervical mass. Pelvic ultrasound was then recommended by radiology. This was obtained and which revealed benign cervical cyst. Patient was provided with the test results. She is asked to follow-up with her primary doctor. Return as needed for any worsening or emergent changes. Patient data External records reviewed:: None Clinical information provided by:: patient Social determinants that could affect healthcare access:: none Patient has the following chronic illnesses:: n/a How is presenting disease/condition affected by chronic disease/condition?: no chronic disease Evaluation data The following diagnostics were reviewed and interpreted by me:: lab results and radiology exam(s) Lab and/or radiology exams considered but not ordered:: n/a Interpretation Summary: Work is unremarkable exception of cervical cyst Medications / Prescriptions Medications or Prescriptions considered but not ordered:: n/a Medication administrations:: n/a Consultations Consultation(s) initiated? (list below): No Diagnosis Differential diagnosis abdominal pain: abdominal pain, gastroenteritis, pancreatitis and small bowel obstruction Most likely diagnosis given after review of the tests above:: Cervical cyst Admission Indicated Admission indicated?: not indicated Admission Request Was there a request for admission?: No Disposition Plan Disposition Plan: Discharge Discharge Attestation Discharge Attestation: The patient and all family members were given an opportunity to ask questions and understood the discharge instructions. Discharge instructions specifically effects, indications for sooner follow up or return to the emergency department, and the expected course of current diagnosis. Patient condition: Stable Discharge Plan Plan Patient Disposition: HOME (Self Care) Patient condition on transfer: Stable Prescriptions/Referrals Referrals: Rossana Alexandra FNP [Primary Care Provider] - In 1 week Problem List Clinical Impression: Cervical cyst Patient/Caregiver Discharge Instructions Additional Instructions: - Your workup was unremarkable for any emergent etiology of your symptoms. - Please contact your primary doctor tomorrow to schedule close follow-up appointment. - Return here as needed for any worsening or emergent changes. Print Language: Indonesian Stand Alone Forms: Rhonda Award Info., Patient Portal Info Letter
[2025-03-21 23:05] VITALS: BP 145/67; PULSE 79; RESP 18; TEMP 36.7; O2SAT 99
== END 2025-03-21 23:07 | disposition home or self-care (01) ==
PROVIDERS: Nurse Practitioner Primary Care; Emergency Provider Emergency Medicine; PCP Registered Nurse Community Health
DX: N88.8 Other specified noninflammatory disorders of cervix uteri (principal)
CPT/HCPCS: 36415; 74176; 76705; 76856; 80053; 81001; 81025; 83690; 85025; 99283